=== PATIENT | female | born 1990 | race Caucasian/White ===

== ENCOUNTER 2017-02-21 17:11 | Emergency (ER) | payer SELFPAY ==
[2017-02-21] MEDS ORDERED: Sodium Chloride 0.9% 1,000 ML IV ONE (17:47)
[2017-02-21] MEDS ORDERED: Ondansetron 4 MG/2 ML SDV IVPUSH ONE (17:47)
[2017-02-21] MEDS ORDERED: Sodium Chloride 0.9% 2.5 ML Syringe FLUSH PRN (17:47)
[2017-02-21] MEDS ORDERED: HYDROmorphone 2 MG/ML Syringe IVPUSH ONE (17:47)
[2017-02-21] MEDS ORDERED: Sodium Chloride 0.9% 10 ML Syringe FLUSH PRN (17:47)
[2017-02-21] MEDS ORDERED: Iopamidol 755 Mg/ML 100 ML Bottle IVPUSH STA (17:53)
--- NOTE | 2017-02-21 17:54 | EDM.PDOC ---
<Zahida Peter - Last Filed: 02/21/17 18:31> ED HPI GENERAL MEDICAL PROBLEM - General Chief Complaint: Abdominal Pain Stated Complaint: PT HAS STOMACH PAINS Time Seen by Provider: 02/21/17 17:14 - History of Present Illness INITIAL COMMENTS - FREE TEXT/NARRATIVE: HISTORY AND PHYSICAL: History of present illness: The patient is a 26-year-old female who presents from [facility] where she was seen for right lower abdominal pain that started Sunday evening, 2 days ago and had labs and abdominal x-ray performed. The provider there contacted me with concerns about a WBC count of 13.8 with a left shift, and a tender right lower abdomen concerned about appendicitis. According to the patient here the pain has been constant for 2 days and waxes and wanes in intensity but is mostly sharp and does radiate to the right lower back and sometimes to the right mid abdomen but never to the left side. The patient says that the pain did not start suddenly was more gradual in onset. This pain been associated with nausea and vomiting and she can't keep anything down for the last 2 days. She has not had a bowel movement in the last 3 days. She's not had a fever cough runny nose sore throat dysuria frequency or hematuria. She has no discrete flank pain and no trauma. The patient has not had any recent travel and 8 no new foods recently. She has no GI or [employer] history no history of ovarian cysts and currently says that she is on the Depakote shot and is not . At the outside clinic she did not have her test and her UA was contaminated but the CBC CMP and amylase results were sent to us and have been reviewed by me. Patient has not taken anything for the pain in the last 2 days. Patient says that she felt hot at home but did not have a documented fever. Please note that the patient did not receive any IV fluids or medications at the outside clinic prior to being sent here and they do not have radiologic capabilities other than plain films Review of systems: As per history of present illness and below otherwise all systems reviewed and negative. Past medical history: As per history of present illness and as reviewed below otherwise noncontributory. Surgical history: As per history of present illness and as reviewed below otherwise noncontributory. Social history: No reported history of drug or alcohol abuse. Family history: As per history of present illness and as reviewed below otherwise noncontributory. Physical exam: Gen.: Well-developed overweight female who is nontoxic and benefits of the reviewed by me. Moves easily in the ED without distress HEENT: Atraumatic, normocephalic, pupils reactive, negative for conjunctival pallor or scleral icterus, mucous membranes tacky, throat clear, neck supple, nontender, trachea midline. Lungs: Clear to auscultation, breath sounds equal bilaterally, chest nontender. Heart: S1S2, regular rate and rhythm no overt murmurs are appreciated Abdomen: Soft, nondistended, and hypoactive bowel sounds. On palpation the patient has very minimal right lower abdominal tenderness on deep palpation with distraction and has no rebound or guarding. Negative for masses or hepatosplenomegaly. Negative for costovertebral tenderness. Pelvis: Stable nontender. 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: Deferred. Rectal: Deferred. Extremities: Atraumatic, negative for cords or calf pain. Neurovascular unremarkable. Neuro: Awake, alert, oriented. Cranial nerves II through XII unremarkable. Cerebellum unremarkable. Motor and sensory unremarkable throughout. Exam nonfocal. Diagnostics: Patient had CBC CMP amylase UA performed at the outside clinic along with an abdominal x-ray so we will perform UA serum hCG and CT scan of the abdomen and pelvis here Therapeutics: IV fluids Zofran Dilaudid CBC results from the outside clinic indicated a WBC count of 13.8, hemoglobin of 15 platelet count of 394 with a differential of 63% segs 3% bandemia, CMP and amylase are within normal limits 1900: Case is endorsed to Dr. Allen to follow-up the UA results (if the patient produces a sample and it can be sent for analysis) and the CT scan results. He can disposition the patient pending those test results. Impression: Right lower abdominal pain with vomiting Definitive disposition and diagnosis as appropriate pending reevaluation and review of above.00 right lower quadrant pain Pain Score (Numeric/FACES): 8 - Related Data Allergies Allergy/AdvReac Type Severity Reaction Status Date / Time Penicillins Allergy Cannot Verified 02/21/17 18:04 Remember Sulfa (Sulfonamide Allergy Anaphylactic Verified 02/21/17 18:04 Antibiotics) Shock Home Meds: Home Meds Hyoscyamine Sulfate [Levsin-Sl] 0.125 mg SL TID #20 tab.subl 02/21/17 [Rx] Ondansetron [Zofran ODT] 4 mg SL Q4H PRN #16 tab.dis 02/21/17 [Rx] ED ROS GENERAL - Review of Systems Review Of Systems: ROS reveals no pertinent complaints other than HPI. ED EXAM, GENERAL - Physical Exam Exam: See Below (See dictation) Course - Vital Signs Last Recorded V/S: Last Vital Signs Temp 36.7 C 02/21/17 17:20 Pulse 70 02/21/17 17:20 Resp 18 02/21/17 17:20 BP 147/83 H 02/21/17 17:20 Pulse Ox 98 02/21/17 17:20 - Orders/Labs/Meds Orders: Active Orders 24 hr Category Date Time Status Abdomen Pelvis w Cont [CT] Stat Exams 02/21/17 17:47 Taken Sodium Chloride 0.9% [Saline Flush] Med 02/21/17 17:47 Active 10 ml FLUSH ASDIRECTED PRN Sodium Chloride 0.9% [Saline Flush] Med 02/21/17 17:47 Active 2.5 ml FLUSH ASDIRECTED PRN Saline Lock Insert [OM.PC] Stat Oth 02/21/17 17:46 Ordered Medication Orders Sodium Chloride (Saline Flush) 10 ml FLUSH ASDIRECTED PRN PRN Reason: Keep Vein Open Last Admin: 02/21/17 18:21 Dose: 10 ml Sodium Chloride (Saline Flush) 2.5 ml FLUSH ASDIRECTED PRN PRN Reason: Keep Vein Open Last Admin: 02/21/17 18:20 Dose: 2.5 ml Labs: Laboratory Tests 02/21/17 02/21/17 Range/Units 17:56 18:35 HCG, Qual NEGATIVE (NEG) Urine Color YELLOW Urine Appearance CLEAR Urine pH 6.5 (5.0-8.0) Ur Specific [place] 1.025 (1.001-1.035) Urine Protein TRACE (NEGATIVE) mg/dL Urine Glucose (UA) NEGATIVE (NEGATIVE) mg/dL Urine Ketones NEGATIVE (NEGATIVE) mg/dL Urine Occult Blood NEGATIVE (NEGATIVE) Urine Nitrite NEGATIVE (NEGATIVE) Urine Bilirubin NEGATIVE (NEGATIVE) Urine Urobilinogen 0.2 (<2.0) EU/dL Ur Leukocyte Esterase NEGATIVE (NEGATIVE) Urine RBC 2-4 (0-2/HPF) Urine WBC 0-2 (0-5/HPF) Ur Epithelial Cells FEW (NONE-FEW) Urine Bacteria FEW (NEGATIVE) Urine Mucus LIGHT (NONE-MOD) Meds: Medications Generic Name Dose Route Start Last Admin Trade Name Marlon PRN Reason Stop Dose Admin Sodium Chloride 10 ml 02/21/17 17:47 02/21/17 18:21 Saline Flush FLUSH 10 ml ASDIRECTED PRN Administration Keep Vein Open Sodium Chloride 2.5 ml 02/21/17 17:47 02/21/17 18:20 Saline Flush FLUSH 2.5 ml ASDIRECTED PRN Administration Keep Vein Open Discontinued Medications Generic Name Dose Route Start Last Admin Trade Name Marlon PRN Reason Stop Dose Admin Hydromorphone HCl 0.5 mg 02/21/17 17:47 02/21/17 18:16 Dilaudid IVPUSH 02/21/17 17:48 0.5 mg ONETIME ONE Administration Sodium Chloride 1,000 mls @ 999 mls/hr 02/21/17 17:47 02/21/17 18:17 Normal Saline IV 02/21/17 18:47 999 mls/hr STAT ONE Administration Iopamidol 95 ml 02/21/17 17:53 02/21/17 17:54 Isovue-370 (76%) IVPUSH 02/21/17 17:54 95 ml ONETIME STA Administration Ondansetron HCl 4 mg 02/21/17 17:47 02/21/17 18:16 Zofran IVPUSH 02/21/17 17:48 4 mg ONETIME ONE Administration Departure - Departure Disposition: Home, Self-Care 01 Condition: Good Clinical Impression: Viral gastroenteritis, Diverticulosis Abdominal pain Qualifiers: Abdominal location: right lower quadrant Qualified Code(s): R10.31 - Right lower quadrant pain Vomiting Qualifiers: Vomiting type: unspecified Vomiting Intractability: non-intractable Nausea presence: with nausea Qualified Code(s): R11.2 - Nausea with vomiting, unspecified - Discharge Information Prescriptions: Hyoscyamine Sulfate [Levsin-Sl] 0.125 mg SL TID #20 tab.subl Ondansetron [Zofran ODT] 4 mg SL Q4H PRN #16 tab.dis PRN Reason: Nausea Instructions: Viral Gastroenteritis, Adult, [id number] Referrals: PCP,None [Primary Care Provider] - Forms: ED Department Discharge Additional Instructions: Your symptoms are consistent with viral gastroenteritis. This means a viral infection that causes abdominal pain nausea and vomiting and often diarrhea. Your workup today was unremarkable. Appropriate for you to follow-up with your primary care doctor as an outpatient in the next one to 2 days. Use Zofran one pill under your tongue every 4 hours as needed for nausea and vomiting. Use Levsin under your tongue every 4 hours as needed for crampy abdominal pain. Rest and drink plenty of fluids and return immediately for new severe or worsening symptoms <Alexander Allen - Last Filed: 02/21/17 20:36> ED HPI GENERAL MEDICAL PROBLEM - History of Present Illness INITIAL COMMENTS - FREE TEXT/NARRATIVE: ER attending note Alexander Allen M.D. Care standby me at [address] Peter. Patient stable and CT results pending. CT results show no acute process an incidental finding of colonic diverticulosis. On reevaluation patient is well-appearing with a benign abdominal exam. She has no focal tenderness whatsoever. No mass or megaly. Nondistended abdomen with normal bowel sounds. She is alert communicative and comfortable appearing. She has no active nausea or vomiting. Vital signs are stable. No further workup or treatment indicated. Patient aware of incidental finding of diverticulosis and will discuss with her primary care doctor. She agrees with outpatient follow-up and strict return precautions given Departure - Departure Time of Disposition: 20:24 Condition: Good
[2017-02-21 21:02] VITALS: BP 127/81
--- NOTE | 2017-02-22 09:57 | CT ---
EXAM DATE: 02/21/17 PATIENT'S AGE: 26 Patient: BALDO TEE Facility: [place], [place] Site . Site : [id number] Study: CT Abdomen/Pelvis [id number]/14/2017 7:00:13 PM Ordering Physician: Rome Teague Final Report: INDICATION: RT LOWER ABD PAIN CT ABDOMEN AND PELVIS WITH CONTRAST TECHNIQUE: Multidetector CT imaging was performed through the abdomen and pelvis following intravenous contrast administration. Coronal and sagittal reconstructions were generated. COMPARISON: None. FINDINGS: Included portions of the lower chest show the lung bases to be clear. The liver, spleen, gallbladder, pancreas, adrenals, and kidneys show no significant findings. Bowel loops are of normal caliber and demonstrate no wall thickening. The appendix is normal. There are a few colon diverticula, without findings of diverticulitis. No free fluid or free air is identified. The abdominal aorta appears normal. No abnormally enlarged lymph nodes are seen. The urinary bladder, uterus, and adnexal regions are within normal limits. Visualized bones show no significant findings. IMPRESSION: No acute abnormality identified. No cause for the patient`s symptoms is evident. MARKIE CHENG MD [employer] Dictated by: Yobani Cheng MD @ 02/21/2017 19:16:34 (Electronic Signature) Report Signed by Proxy. [facility]
== END 2017-02-21 20:58 | disposition home or self-care (01) ==
LOC: MW.ED 17:11
DX: A08.4 Viral intestinal infection, unspecified (principal); K57.90 Diverticulosis of intestine, part unspecified, without perforation or abscess without bleeding; Z88.0 Allergy status to penicillin; Z88.2 Allergy status to sulfonamides
CPT/HCPCS: 36415; 74177; 81001; 84703; 96361; 96374; 96375; 99284; J1170; J2405; J7040; Q9967

== ENCOUNTER 2018-03-27 09:05 | Emergency (ER) | payer SELFPAY ==
--- NOTE | 2018-03-27 09:20 | EDM.PDOCBH ---
ED HPI GENERAL MEDICAL PROBLEM - General Chief Complaint: Behavioral/Psych Stated Complaint: PT IS HERE TO BE CHECK Time Seen by Provider: 03/27/18 09:11 Source of Information: Reports: Patient, Police History Limitations: Reports: No Limitations - History of Present Illness INITIAL COMMENTS - FREE TEXT/NARRATIVE: History of present illness: []Patient was brought in by police after being contacted by a coworker that stated she had been texting them and threatening to drive her car into a erwin. Patient has a history of depression and has an appointment with a therapist this month. She has been treated with antidepressants and denies any previous suicide attempts or hospitalizations in the past. Review of systems: As per history of present illness and below otherwise all systems reviewed and negative. Past medical history: As per history of present illness and as reviewed below otherwise noncontributory. Surgical history: As per history of present illness and as reviewed below otherwise noncontributory. Social history: No reported history of drug or alcohol abuse. Family history: As per history of present illness and as reviewed below otherwise noncontributory. Physical exam: General: Well developed, well nourished in NAD HEENT: Atraumatic, normocephalic, pupils reactive, negative for conjunctival pallor or scleral icterus, mucous membranes moist, throat clear, neck supple, nontender, trachea midline. Lungs: Clear to auscultation, breath sounds equal bilaterally, chest nontender. Heart: S1S2, regular, negative for clicks, rubs, or JVD. Abdomen: Soft, nondistended, nontender. Negative for masses or hepatosplenomegaly. Negative for costovertebral tenderness. Pelvis: Stable nontender. 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: Deferred. Rectal: Deferred. Extremities: Atraumatic, negative for cords or calf pain. Neurovascular unremarkable. Neuro: Awake, alert, oriented. Cranial nerves II through XII unremarkable. Cerebellum unremarkable. Motor and sensory unremarkable throughout. Exam nonfocal. Diagnostics: []CBC normal, chemistry normal, aspirin, Tylenol and alcohol are all negative. Tox screen positive for marijuana Therapeutics: []Ativan given 1 mg by mouth Impression: []Depression with suicidal ideation with a plan Plan: []Transfer to [facility] Dr. Kim accepts for psych evaluation Definitive disposition and diagnosis as appropriate pending reevaluation and review of above. - Related Data Allergies Allergy/AdvReac Type Severity Reaction Status Date / Time Penicillins Allergy Airway Verified 03/27/18 09:28 Tightness Sulfa (Sulfonamide Allergy Anaphylactic Verified 03/27/18 09:28 Antibiotics) Shock Home Meds: Home Meds Betamethasone Valerate [Valisone 0.1% Crm] 0.5 gm TOP BID PRN 03/27/18 [History] ClonazePAM [KlonoPIN] 1 mg PO TID 03/27/18 [History] Dicyclomine HCl [Bentyl] 10 mg PO QID PRN 03/27/18 [History] Ibuprofen 600 mg PO Q8H PRN 03/27/18 [History] LORazepam 1 mg PO BID PRN 03/27/18 [History] buPROPion [Wellbutrin] 150 mg PO DAILY 03/27/18 [History] traZODone HCl [Trazodone HCl] 100 mg PO DAILY 03/27/18 [History] Past Medical History Psychiatric History: Reports: Depression - Past Surgical History HEENT Surgical History: Reports: Tonsillectomy Social & Family History - Family History Family Medical History: Noncontributory ED ROS GENERAL - Review of Systems Review Of Systems: See Below (See history of present illness) ED EXAM, BEHAVIORAL HEALTH - Physical Exam Exam: See Below (History of present illness) COURSE, BEHAVIORAL HEALTH COMP - Course Vital Signs: Last Vital Signs Temp 97.1 F 03/27/18 11:51 Pulse 88 03/27/18 11:51 Resp 18 03/27/18 11:51 BP 163/106 H 03/27/18 11:51 Pulse Ox 97 03/27/18 11:51 Orders, Labs, Meds: Active Orders 24 hr Category Date Time Status EKG Documentation Completion [RC] STAT Care 03/27/18 09:19 Active Involuntary Admission/Hold [RC] ASDIRECTED Care 03/27/18 09:27 Active DRUG SCREEN, URINE [URCHEM] Stat Lab 03/27/18 10:31 Ordered Laboratory Tests 03/27/18 03/27/18 03/27/18 Range/Units 09:34 09:34 10:31 WBC 7.13 (4.0-11.0) K/uL RBC 4.72 (4.30-5.90) M/uL Hgb 14.3 (12.0-16.0) g/dL Hct 42.1 (36.0-46.0) % MCV 89.2 (80.0-98.0) fL MCH 30.3 (27.0-32.0) pg MCHC 34.0 (31.0-37.0) g/dL RDW Std Deviation 43.1 (28.0-62.0) fl RDW Coeff of Rose 13 (11.0-15.0) % Plt Count 281 (150-400) K/uL MPV 10.70 (7.40-12.00) fL Neut % (Auto) 52.7 (48.0-80.0) % Lymph % (Auto) 38.1 (16.0-40.0) % [place] % (Auto) 6.6 (0.0-15.0) % Eos % (Auto) 2.0 (0.0-7.0) % Baso % (Auto) 0.6 (0.0-1.5) % Neut # (Auto) 3.8 (1.4-5.7) K/uL Lymph # (Auto) 2.7 H (0.6-2.4) K/uL [place] # (Auto) 0.5 (0.0-0.8) K/uL Eos # (Auto) 0.1 (0.0-0.7) K/uL Baso # (Auto) 0.0 (0.0-0.1) K/uL Nucleated RBC % 0.0 /100WBC Nucleated RBCs # 0 K/uL Sodium 144 (136-145) mmol/L Potassium 3.8 (3.5-5.1) mmol/L Chloride 111 H (98-107) mmol/L Carbon Dioxide 22.2 (21.0-32.0) mmol/L BUN 7 (7.0-18.0) mg/dL Creatinine 0.7 (0.6-1.0) mg/dL Est Cr Clr Drug Dosing 102.40 mL/min Estimated GFR (MDRD) > 60.0 ml/min Glucose 101 (74-106) mg/dL Calcium 8.7 (8.5-10.1) mg/dL Magnesium 2.2 (1.8-2.4) mg/dL Total Bilirubin 0.3 (0.2-1.0) mg/dL AST 18 (15-37) IU/L ALT 29 (14-63) IU/L Alkaline Phosphatase 63 (46-116) U/L Total Protein 7.1 (6.4-8.2) g/dL Albumin 3.7 (3.4-5.0) g/dL Globulin 3.4 (2.0-3.5) g/dL Albumin/Globulin Ratio 1.1 L (1.3-2.8) TSH 3rd Generation 0.83 (0.36-3.74) uIU/mL Salicylates 1.5 (0-20) mg/dL Urine Opiates Screen NEGATIVE (NEGATIVE) Ur Oxycodone Screen NEGATIVE (NEGATIVE) Urine Methadone Screen NEGATIVE (NEGATIVE) Acetaminophen 0.0 ug/mL Ur Barbiturates Screen NEGATIVE (NEGATIVE) Ur Phencyclidine Scrn NEGATIVE (NEGATIVE) Ur Amphetamine Screen NEGATIVE (NEGATIVE) U Methamphetamines Scrn NEGATIVE (NEGATIVE) U Benzodiazepines Scrn NEGATIVE (NEGATIVE) U Cocaine Metab Screen NEGATIVE (NEGATIVE) U Marijuana (THC) Screen POSITIVE (NEGATIVE) Ethyl Alcohol 11 mg/dL Medications Discontinued Medications Generic Name Dose Route Start Last Admin Trade Name Diegoq PRN Reason Stop Dose Admin Lorazepam 1 mg 03/27/18 10:05 03/27/18 10:12 Ativan PO 03/27/18 10:06 1 mg ONETIME ONE Administration Departure - Departure Time of Disposition: 11:59 Disposition: DC/Tfer to Psych Hosp/Unit 65 Condition: Good Clinical Impression: Depression with suicidal ideation - Discharge Information Referrals: PCP,None [Primary Care Provider] - Forms: ED Department Discharge - My Orders Last 24 Hours: My Active Orders 03/27/18 09:19 EKG Documentation Completion [RC] STAT 03/27/18 09:27 Involuntary Admission/Hold [] ASDIRECTED 03/27/18 10:31 DRUG SCREEN, URINE [URCHEM] Stat - Assessment/Plan Last 24 Hours: My Active Orders 03/27/18 09:19 EKG Documentation Completion [RC] STAT 03/27/18 09:27 Involuntary Admission/Hold [] ASDIRECTED 03/27/18 10:31 DRUG SCREEN, URINE [URCHEM] Stat
[2018-03-27] MEDS ORDERED: LORazepam 1 MG Tab PO ONE (10:05)
[2018-03-27 10:41] LABS: CHLORIDE,CL 111 mmol/L (98-107); SODIUM,NA 144 mmol/L (136-145)
[2018-03-27 11:52] VITALS: BP 163/106
== END 2018-03-27 13:14 ==
LOC: MW.ED 09:05
DX: F32.9 Major depressive disorder, single episode, unspecified (principal); R45.851 Suicidal ideations; Z88.0 Allergy status to penicillin; Z88.2 Allergy status to sulfonamides; Z79.899 Other long term (current) drug therapy
CPT/HCPCS: 36415; 80053; 80305; 83735; 84443; 85025; 93005; 99285; A9270; G0480

== ENCOUNTER 2018-05-31 10:01 | Emergency (ER) | payer SELFPAY ==
--- NOTE | 2018-05-31 10:19 | EDM.PDOC ---
ED HPI GENERAL MEDICAL PROBLEM - General Chief Complaint: 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 Problem Stated Complaint: BLADDER INFECTION Time Seen by Provider: 05/31/18 10:04 Source of Information: Reports: Patient History Limitations: Reports: No Limitations - History of Present Illness INITIAL COMMENTS - FREE TEXT/NARRATIVE: HISTORY AND PHYSICAL: History of present illness: Patient is a 28-year-old female who presents to the emergency room with a 2 day history of nausea and dysuria. She states that she has burning with urination which has been worse this morning. She does have some suprapubic tenderness with palpation. She denies any chance of or any concerns of STDs. She denies any vaginal bleeding or discharge. She has been eating and drinking appropriately although has had nausea. An episode of emesis yesterday evening. Denies any fever, chills, chest pain or shortness of breath. Denies any vomiting , diarrhea, constipation or blood in her urine or stool. Review of systems: As per history of present illness and below otherwise all systems reviewed and negative. Past medical history: As per history of present illness and as reviewed below otherwise noncontributory. Surgical history: As per history of present illness and as reviewed below otherwise noncontributory. Social history: No reported history of drug or alcohol abuse. Family history: As per history of present illness and as reviewed below otherwise noncontributory. Physical exam: General: Well-developed and well-nourished 28-year-old female. Alert and oriented. Nontoxic appearing and in no acute distress. HEENT: Atraumatic, normocephalic, pupils equal and reactive bilaterally, negative for conjunctival pallor or scleral icterus, mucous membranes moist, throat clear, neck supple, nontender, trachea midline. No drooling or trismus noted. No meningeal signs Lungs: Clear to auscultation, breath sounds equal bilaterally, chest nontender. Heart: S1S2, regular rate and rhythm without overt murmur Abdomen: Soft, nondistended, nontender. Negative for masses or hepatosplenomegaly. Negative for costovertebral tenderness. Pelvis: Stable nontender. 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: Deferred. Rectal: Deferred. Skin: Intact, warm, dry. No lesions or rashes noted. Extremities: Atraumatic, negative for cords or calf pain. Neurovascular unremarkable. Neuro: Awake, alert, oriented. Cranial nerves II through XII unremarkable. Cerebellum unremarkable. Motor and sensory unremarkable throughout. Exam nonfocal. Notes: Does not have much bacteria or WBCs. I did add a urine culture. Patient is meant that she has a UTI. We rediscussed any concerns of STDs or need for a pelvic exam, she declines. I will give her Macrobid and Pyridium. If signs and symptoms worsen I do want her to follow-up with her primary care provider at [facility]. She voices understanding and denies any further questions or concerns at this time. Diagnostics: UA Therapeutics: Zofran ODT Prescription: Macrobid and Pyridium Impression: Dysuria Plan: 1. Drink plenty of water. 2. Take your medications as directed. 3. Follow-up with your primary care provider in the next 1-2 days. Return to the ED as needed and as discussed. Definitive disposition and diagnosis as appropriate pending reevaluation and review of above. Duration: Day(s): Location: Reports: Pelvis Bladder Pain Score (Numeric/FACES): 8 - Related Data Allergies Allergy/AdvReac Type Severity Reaction Status Date / Time Penicillins Allergy Airway Verified 03/27/18 09:28 Tightness Sulfa (Sulfonamide Allergy Anaphylactic Verified 03/27/18 09:28 Antibiotics) Shock Home Meds: Home Meds Betamethasone Valerate [Valisone 0.1% Crm] 0.5 gm TOP BID PRN 03/27/18 [History] ClonazePAM [KlonoPIN] 1 mg PO TID 03/27/18 [History] Dicyclomine HCl [Bentyl] 10 mg PO QID PRN 03/27/18 [History] Ibuprofen 600 mg PO Q8H PRN 03/27/18 [History] LORazepam 0.5 mg PO BID PRN 03/27/18 [History] buPROPion [Wellbutrin] 150 mg PO DAILY 03/27/18 [History] traZODone HCl [Trazodone HCl] 100 mg PO DAILY 03/27/18 [History] ARIPiprazole [Abilify] 15 mg DAILY 05/31/18 [History] medroxyPROGESTERone [Depo-Provera] 05/31/18 [History] Past Medical History Psychiatric History: Reports: Depression - Infectious Disease History Infectious Disease History: Reports: Chicken Pox - Past Surgical History HEENT Surgical History: Reports: Tonsillectomy Social & Family History - Family History Family Medical History: Noncontributory ED ROS GENERAL - Review of Systems Review Of Systems: ROS reveals no pertinent complaints other than HPI. ED EXAM, RENAL/ - Physical Exam Exam: See Below (See dictation) Course - Vital Signs Last Recorded V/S: Last Vital Signs Temp 97.5 F 05/31/18 10:22 Pulse 88 05/31/18 10:22 Resp 18 05/31/18 10:22 BP 145/78 H 05/31/18 10:22 Pulse Ox 96 05/31/18 10:22 - Orders/Labs/Meds Orders: Active Orders 24 hr Category Date Time Status CULTURE URINE [RM] Stat Lab 05/31/18 10:59 Ordered Labs: Laboratory Tests 05/31/18 Range/Units 10:25 Urine Color YELLOW Urine Appearance SLT CLOUDY Urine pH 6.0 (5.0-8.0) Ur Specific [place] 1.025 (1.001-1.035) Urine Protein TRACE (NEGATIVE) mg/dL Urine Glucose (UA) NEGATIVE (NEGATIVE) mg/dL Urine Ketones TRACE H (NEGATIVE) mg/dL Urine Occult Blood NEGATIVE (NEGATIVE) Urine Nitrite NEGATIVE (NEGATIVE) Urine Bilirubin NEGATIVE (NEGATIVE) Urine Urobilinogen 0.2 (<2.0) EU/dL Ur Leukocyte Esterase NEGATIVE (NEGATIVE) Urine RBC NONE SEEN (0-2/HPF) Urine WBC 1-2 (0-5/HPF) Ur Epithelial Cells RARE (NONE-FEW) Amorphous Sediment NOT SEEN (NEGATIVE) Urine Bacteria NOT SEEN (NEGATIVE) Urine Mucus LIGHT (NONE-MOD) Meds: Medications Discontinued Medications Generic Name Dose Route Start Last Admin Trade Name Freq PRN Reason Stop Dose Admin Ondansetron HCl 4 mg 05/31/18 10:31 Zofran Odt PO 05/31/18 10:32 ONETIME ONE Departure - Departure Time of Disposition: 10:56 Disposition: Home, Self-Care 01 Clinical Impression: Dysuria - Discharge Information Instructions: Dysuria Referrals: PCP,None [Primary Care Provider] - Forms: ED Department Discharge Additional Instructions: The following information is given to patients seen in the emergency department who are being discharged to home. This information is to outline your options for follow-up care. We provide all patients seen in our emergency department with a follow-up referral. The need for follow-up, as well as the timing and circumstances, are variable depending upon the specifics of your emergency department visit. If you don't have a primary care physician on staff, we will provide you with a referral. We always advise you to contact your personal physician following an emergency department visit to inform them of the circumstance of the visit and for follow-up with them and/or the need for any referrals to a consulting specialist. The emergency department will also refer you to a specialist when appropriate. This referral assures that you have the opportunity for follow-up care with a specialist. All of these measure are taken in an effort to provide you with optimal care, which includes your follow-up. Under all circumstances we always encourage you to contact your private physician who remains a resource for coordinating your care. When calling for follow-up care, please make the office aware that this follow-up is from your recent emergency room visit. If for any reason you are refused follow-up, please contact the [facility] Emergency Department at and asked to speak to the emergency department charge nurse. [facility] [address] [place] [id number] [facility] ([facility]) [address] [place] [address] Phone: [phone] 1. Drink plenty of water. 2. Take your medications as directed. 3. Follow-up with your primary care provider in the next 1-2 days. Return to the ED as needed and as discussed. - My Orders Last 24 Hours: My Active Orders 05/31/18 10:59 CULTURE URINE [RM] Stat - Assessment/Plan Last 24 Hours: My Active Orders 05/31/18 10:59 CULTURE URINE [RM] Stat
[2018-05-31 10:26] VITALS: BP 145/78
[2018-05-31] MEDS ORDERED: Ondansetron 4 MG Tab.DIS PO ONE (10:31)
== END 2018-05-31 11:16 | disposition home or self-care (01) ==
LOC: MW.ED 10:01
DX: R30.0 Dysuria (principal); R11.0 Nausea; Z88.0 Allergy status to penicillin; Z88.2 Allergy status to sulfonamides; Z79.899 Other long term (current) drug therapy
CPT/HCPCS: 81001; 87086; 99283; A9270

== ENCOUNTER 2019-02-02 04:47 | Observation (INO) | payer OTHER ==
[2019-02-02] MEDS ORDERED: Sodium Chloride 0.9% 1,000 ML IV ONE (04:52)
[2019-02-02] MEDS ORDERED: Pantoprazole 40 MG Vial IVPUSH ONE (04:52)
[2019-02-02] MEDS ORDERED: Ondansetron 4 MG/2 ML SDV IVPUSH ONE (04:52)
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
[2019-02-02] MEDS ORDERED: Sodium Chloride 0.9% 20 ML ONE (05:22)
[2019-02-02] MEDS ORDERED: Iopamidol 755 Mg/ML 100 ML Bottle IVPUSH ONE (05:23)
[2019-02-02 05:24] LABS: CHLORIDE,CL 107 mmol/L (98-107); SODIUM,NA 144 mmol/L (136-145)
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
[2019-02-02] MEDS: Lactated Ringers 1,000 ML IV SCH ×2 (06:36→14:12)
[2019-02-02] MEDS ORDERED: Nicotine 14 MG/24 Hr Patch TRDERM SCH (09:00)
[2019-02-02] MEDS ORDERED: diphenhydrAMINE 50 MG/ML SDV IVPUSH PRN (09:12)
[2019-02-02] MEDS ORDERED: Ondansetron 4 MG/2 ML SDV IVPUSH PRN (09:12)
[2019-02-02] MEDS ORDERED: Acetaminophen 325 MG Tab PO PRN (09:14)
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
[2019-02-02] MEDS ORDERED: Ketorolac 10 MG Tab PO PRN (13:46)
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
[2019-02-02 18:31] VITALS: BP 140/80
== END 2019-02-02 16:30 | disposition home or self-care (01) ==
LOC: MW.ED 04:47 → MW.MS 05:45
PROVIDERS: ADMIT Surgery; ATTEND Surgery
DX: F10.929 Alcohol use, unspecified with intoxication, unspecified (principal); I10 Essential (primary) hypertension; F32.9 Major depressive disorder, single episode, unspecified; V44.5XXA Car driver injured in collision with heavy transport vehicle or bus in traffic accident, initial encounter; Z88.0 Allergy status to penicillin; Z88.2 Allergy status to sulfonamides; Z79.899 Other long term (current) drug therapy
CPT/HCPCS: 70450; 71045; 71260; 72125; 72170; 74177; 80053; 80305; 81001; 81025; 83690; 84484; 85025; 93005; 96361; 96374; 96375; 99285; A9270; C9113; G0480; J2405; J7040; J7120; Q9967; G0378

== ENCOUNTER 2019-03-13 09:51 | Emergency (ER) | payer SELFPAY ==
[2019-03-13 10:03] VITALS: BP 155/100
[2019-03-13] MEDS ORDERED: Ketorolac 60 MG/2 ML SDV IM ONE (10:23)
[2019-03-13] MEDS ORDERED: Cyclobenzaprine 10 MG Tab PO ONE (10:25)
--- NOTE | 2019-03-13 10:34 | EDM.PDOC ---
<Gerardoirish Edis Garcia - Last Filed: 03/13/19 11:08> ED HPI GENERAL MEDICAL PROBLEM - General Chief Complaint: Neck Problem Stated Complaint: PAIN IN NECK AND LEFT SHOULDER Time Seen by Provider: 03/13/19 10:28 - History of Present Illness INITIAL COMMENTS - FREE TEXT/NARRATIVE: 28 y/o female here for neck pain. States she woke up this morning with acute neck pain on left side. clarissa rated 10/10. Has limited range of motion of the neck. No saddle anesthesia. No bowel incontinence. No difficulty ambulating or with her upper extremities. Tried Ibuprofen 600 mg PO once. No improvement in pain. She was crying when I examined her. neck Pain Score (Numeric/FACES): 10 - Related Data Allergies Allergy/AdvReac Type Severity Reaction Status Date / Time Penicillins Allergy Airway Verified 02/02/19 05:07 Tightness Sulfa (Sulfonamide Allergy Anaphylactic Verified 02/02/19 05:07 Antibiotics) Shock Home Meds: Home Meds Ibuprofen 600 mg PO Q8H PRN 03/27/18 [History] LORazepam 0.5 mg PO BID PRN 03/27/18 [History] ARIPiprazole [Abilify] 15 mg DAILY 05/31/18 [History] medroxyPROGESTERone [Depo-Provera] 150 mg IM ASDIRECTED 05/31/18 [History] Past Medical History Cardiovascular History: Reports: Hypertension Respiratory History: Reports: None Gastrointestinal History: Reports: None 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: Musculoskeletal History: Reports: None Neurological History: Reports: None Psychiatric History: Reports: Depression Endocrine/Metabolic History: Reports: None Hematologic History: Reports: None Immunologic History: Reports: None Oncologic (Cancer) History: Reports: None Dermatologic History: Reports: None - Infectious Disease History Infectious Disease History: Reports: Chicken Pox - Past Surgical History Head Surgeries/Procedures: Reports: None HEENT Surgical History: Reports: Tonsillectomy Social & Family History - Family History Family Medical History: Noncontributory - Tobacco Use Smoking Status *Q: Current Every Day Smoker Years of Tobacco use: 13 Packs/Tins Daily: 0.5 - Caffeine Use Caffeine Use: Reports: Coffee, Energy Drinks, Soda - Recreational Drug Use Recreational Drug Use: No ED ROS GENERAL - Review of Systems Review Of Systems: ROS reveals no pertinent complaints other than HPI. ED EXAM, UPPER BACK/NECK PAIN - Physical Exam Exam: See Below Head Exam: Atraumatic Neck Exam: Other (tender on left cervical paraspinal muscle. Feels warm and tight. Pain with pressure. Limited range of motion. Upper extremity srength intact bilaterally. Sensation intact.) Cardiovascular/Respiratory: Regular Rate, Rhythm Neurologic: No Motor/Sensory Deficits, Alert, Oriented x 3 Course - Vital Signs Text/Narrative:: Administered Ketorolac 60 mg IM once. Flexeril 10 mg PO once. Cervical xray did not show any acute fractures. Last Recorded V/S: Last Vital Signs Temp 36.1 C 03/13/19 10:00 Pulse 95 03/13/19 10:00 Resp 20 03/13/19 10:00 BP 155/100 H 03/13/19 10:00 Pulse Ox 97 03/13/19 10:00 - Orders/Labs/Meds Orders: Active Orders 24 hr Category Date Time Status Cervical Spine 2V or 3V [CR] Stat Exams 03/13/19 10:27 Taken Meds: Medications Discontinued Medications Generic Name Dose Route Start Last Admin Trade Name Freq PRN Reason Stop Dose Admin Cyclobenzaprine HCl 10 mg 03/13/19 10:25 03/13/19 10:32 Flexeril PO 03/13/19 10:26 10 mg ONETIME ONE Administration Ketorolac Tromethamine 60 mg 03/13/19 10:23 03/13/19 10:32 Toradol IM 03/13/19 10:24 60 mg ONETIME ONE Administration Departure - Departure Time of Disposition: 11:07 Disposition: Home, Self-Care 01 Condition: Good Clinical Impression: Muscle spasm - Discharge Information *PRESCRIPTION DRUG MONITORING PROGRAM REVIEWED*: Not Applicable *COPY OF PRESCRIPTION DRUG MONITORING REPORT IN PATIENT JUDY: Not Applicable Referrals: Amando Hines MD [Primary Care Provider] - Forms: ED Department Discharge Additional Instructions: The following information is given to patients seen in the emergency department who are being discharged to home. This information is to outline your options for follow-up care. We provide all patients seen in our emergency department with a follow-up referral. The need for follow-up, as well as the timing and circumstances, are variable depending upon the specifics of your emergency department visit. If you don't have a primary care physician on staff, we will provide you with a referral. We always advise you to contact your personal physician following an emergency department visit to inform them of the circumstance of the visit and for follow-up with them and/or the need for any referrals to a consulting specialist. The emergency department will also refer you to a specialist when appropriate. This referral assures that you have the opportunity for followup care with a specialist. All of these measure are taken in an effort to provide you with optimal care, which includes your followup. Under all circumstances we always encourage you to contact your private physician who remains a resource for coordinating your care. When calling for followup care, please make the office aware that this follow-up is from your recent emergency room visit. If for any reason you are refused follow-up, please contact the [facility] emergency department at and ask to speak to the emergency department charge nurse. [facility] Primary care- Internal Medicine and Family [address] [address] Use ibuprofen 600 mg to 800 mg every 6-8 hours as you have been directed and at the Flexeril for muscle spasm but only take this while at home as it may make you drowsy. Apply heat to area and use massage techniques to try to open up the area and begin to range of motion her neck slowly to keep the muscles as flexible and open as you can. Pain will slowly improve over the next several days to one week. Call and schedule a follow-up appointment in the clinic with one of our providers and return to ER as needed and as discussed <Zahida Peter - Last Filed: 03/13/19 11:15> ED HPI GENERAL MEDICAL PROBLEM - History of Present Illness INITIAL COMMENTS - FREE TEXT/NARRATIVE: This is Dr. Peter dictating an addendum note as I am supervising physician on this case. I agree with history and physical as above personally evaluated the patient. She has reproducible tenderness at the left paraspinals extending into the trapezius but does not involve the thoracic paraspinals or shoulder girdle. She has no midline bony tenderness defects or deformities and has full range of motion of her upper extremities. She denies any trauma and says that when she went to bed last and she felt fine and then woke up with the stiff neck. She says the right side is not painful. We will plan on symptomatic care including [id number] ibuprofen 800 mg every 8 hours or 600 mg every 6 hours as well as Flexeril for home. ED ROS GENERAL - Review of Systems Review Of Systems: ROS reveals no pertinent complaints other than HPI. ED EXAM, UPPER BACK/NECK PAIN - Physical Exam Exam: See Below (See dictation) Departure - Departure Condition: Good
--- NOTE | 2019-03-13 11:13 | CR ---
INDICATION: Pain. TECHNIQUE: Three views cervical spine. FINDINGS: Vertebral bodies are normal in height. Mild reversal of normal lordosis. Dens and lateral masses normally positioned. Prevertebral soft tissues are normal. Postop elements are intact. Disc spaces are maintained. Torticollis with the patient`s head tilted to the right. IMPRESSION: 1. No acute bony abnormality. 2. Reversal of the normal cervical lordosis. 3. Torticollis. Dictated by Nicky Virgen MD @ Mar 13 2019 11:11AM Signed by Dr. Nicky Virgen @ Mar 13 2019 11:13AM
== END 2019-03-13 11:29 | disposition home or self-care (01) ==
LOC: MW.ED 09:51
DX: M62.838 Other muscle spasm (principal); F17.210 Nicotine dependence, cigarettes, uncomplicated; I10 Essential (primary) hypertension; Z79.899 Other long term (current) drug therapy; Z88.0 Allergy status to penicillin; Z88.2 Allergy status to sulfonamides
CPT/HCPCS: 72040; 96372; 99283; A9270; J1885

== ENCOUNTER 2019-06-02 11:27 | Emergency (ER) | payer SELFPAY ==
--- NOTE | 2019-06-02 11:39 | EDM.PDOC ---
ED HPI GENERAL MEDICAL PROBLEM - General Chief Complaint: Skin Complaint Stated Complaint: RIGHT FORHEAD REDNESS Time Seen by Provider: 06/02/19 11:36 Source of Information: Reports: Patient History Limitations: Reports: No Limitations - History of Present Illness INITIAL COMMENTS - FREE TEXT/NARRATIVE: HISTORY AND PHYSICAL: History of present illness: Patient is a 29-year-old female presenting to the emergency room for skin lesion on her forehead. Patient states 4 days ago she developed a reddened area above her right eyebrow with a small center that was slightly elevated above the lesion. She states she tried to pop the center, however only clear watery discharge came out of it. She states yesterday in the afternoon the area more erythematous with increased pain and pressure. There are no aggravating or alleviating factors for her. Patient denies any fever, chills, change in vision , syncope or near syncope. Denies any chest pain, back pain, shortness of breath or cough. Denies any abdominal pain, nausea, vomiting, diarrhea, constipation or dysuria. Has not noted any blood in urine or stool. Patient has been eating and drinking appropriately. Review of systems: As per history of present illness and below otherwise all systems reviewed and negative. Past medical history: As per history of present illness and as reviewed below otherwise noncontributory. Surgical history: As per history of present illness and as reviewed below otherwise noncontributory. Social history: See social history for further information Family history: As per history of present illness and as reviewed below otherwise noncontributory. Physical exam: General: Well-developed and well-nourished 29-year-old female. Alert and orientated. Nontoxic in appearance. Vital signs are stable and have been reviewed by me. HEENT: A golf-ball sized area of erythema along the right mid-eyebrow, does not affect the globe itself, no ocular impingement, normocephalic, pupils equal and reactive bilaterally, negative for conjunctival pallor or scleral icterus, mucous membranes moist, TMs normal bilaterally, throat clear, neck supple, nontender, trachea midline. No temporal pain with palpation, no mastoid tenderness, drooling or trismus noted. No meningeal signs. No hot potato voice noted. Lungs: Clear to auscultation, breath sounds equal bilaterally, chest nontender. Heart: S1S2, regular rate and rhythm without overt murmur Abdomen: Soft, nondistended, nontender. Negative for masses or hepatosplenomegaly. Negative for costovertebral tenderness. Skin: Intact, warm, dry. No lesions or rashes noted. Extremities: Atraumatic, moves all extremities per self without difficulty or deficits, negative for cords or calf pain. Neurovascular unremarkable. Neuro: Awake, alert, oriented. Cranial nerves II through XII unremarkable. Cerebellum unremarkable. Motor and sensory unremarkable throughout. Exam nonfocal. Notes: The area appears localized, nonsystemic. Does appear that the patient may have had a blister type burn and when she popped the fluid that the remaining skin that is erythematous with left. She does not recall any injury but does have a picture on her phone which does look like the blister as described above. Supportive care measures were reviewed and discussed. Voices understanding and is agreeable to plan of care. Denies any further questions or concerns at this time. Diagnostics: None Therapeutics: None Prescription: Bactroban Impression: Localized Skin Infection Plan: 1. Keep the area clean and dry. Wash gently with soap and water twice daily. He may apply the Bactroban ointment 3 times a day 5 days. 2. Tylenol and/or ibuprofen as needed for pain management. 3. Follow-up with your primary care provider as we discussed. Return to the ED as needed and as discussed. Definitive disposition and diagnosis as appropriate pending reevaluation and review of above. Right Face/Facial Pain Score (Numeric/FACES): 10 - Related Data Allergies Allergy/AdvReac Type Severity Reaction Status Date / Time Penicillins Allergy Airway Verified 06/02/19 11:42 Tightness Sulfa (Sulfonamide Allergy Anaphylactic Verified 06/02/19 11:42 Antibiotics) Shock Home Meds: Home Meds Ibuprofen 600 mg PO Q8H PRN 03/27/18 [History] LORazepam 0.5 mg PO BID PRN 03/27/18 [History] ARIPiprazole [Abilify] 15 mg DAILY 05/31/18 [History] medroxyPROGESTERone [Depo-Provera] 150 mg IM ASDIRECTED 05/31/18 [History] Mupirocin Oint [Bactroban Oint] 1 dose TOP TID 5 Days #1 tube 06/02/19 [Rx] Past Medical History Cardiovascular History: Reports: Hypertension Respiratory History: Reports: None Gastrointestinal History: Reports: None 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 History: Reports: None PHYSICAL THERAPY AID History: Reports: Musculoskeletal History: Reports: None Neurological History: Reports: None Psychiatric History: Reports: Depression Endocrine/Metabolic History: Reports: None Hematologic History: Reports: None Immunologic History: Reports: None Oncologic (Cancer) History: Reports: None Dermatologic History: Reports: None - Infectious Disease History Infectious Disease History: Reports: Chicken Pox - Past Surgical History Head Surgeries/Procedures: Reports: None HEENT Surgical History: Reports: Tonsillectomy Social & Family History - Family History Family Medical History: Noncontributory - Caffeine Use Caffeine Use: Reports: Coffee, Energy Drinks, Soda ED ROS GENERAL - Review of Systems Review Of Systems: ROS reveals no pertinent complaints other than HPI. ED EXAM, SKIN/RASH Exam: See Below (See Dictation) Course - Vital Signs Last Recorded V/S: Last Vital Signs Temp 98.2 F 06/02/19 11:37 Pulse 85 06/02/19 11:37 Resp 18 06/02/19 11:37 BP 133/80 06/02/19 11:37 Pulse Ox 96 06/02/19 11:37 Departure - Departure Time of Disposition: 12:02 Disposition: Home, Self-Care 01 Clinical Impression: Localized infection of skin - Discharge Information Prescriptions: Mupirocin Oint [Bactroban Oint] 1 dose TOP TID 5 Days #1 tube Instructions: Contact Dermatitis, [id number] Referrals: PCP,Not In Area [Primary Care Provider] - Forms: ED Department Discharge Additional Instructions: The following information is given to patients seen in the emergency department who are being discharged to home. This information is to outline your options for follow-up care. We provide all patients seen in our emergency department with a follow-up referral. The need for follow-up, as well as the timing and circumstances, are variable depending upon the specifics of your emergency department visit. If you don't have a primary care physician on staff, we will provide you with a referral. We always advise you to contact your personal physician following an emergency department visit to inform them of the circumstance of the visit and for follow-up with them and/or the need for any referrals to a consulting specialist. The emergency department will also refer you to a specialist when appropriate. This referral assures that you have the opportunity for follow-up care with a specialist. All of these measure are taken in an effort to provide you with optimal care, which includes your follow-up. Under all circumstances we always encourage you to contact your private physician who remains a resource for coordinating your care. When calling for follow-up care, please make the office aware that this follow-up is from your recent emergency room visit. If for any reason you are refused follow-up, please contact the [facility] Emergency Department at and asked to speak to the emergency department charge nurse. [facility] [address] [place] [id number] [facility] [address] [place] [id number] 1. Keep the area clean and dry. Wash gently with soap and water twice daily. He may apply the Bactroban ointment 3 times a day 5 days. 2. Tylenol and/or ibuprofen as needed for pain management. 3. Follow-up with your primary care provider as we discussed. Return to the ED as needed and as discussed.
[2019-06-02 11:42] VITALS: BP 133/80; PULSE 85
== END 2019-06-02 12:13 | disposition home or self-care (01) ==
LOC: MW.ED 11:27
DX: L08.9 Local infection of the skin and subcutaneous tissue, unspecified (principal); I10 Essential (primary) hypertension; F32.9 Major depressive disorder, single episode, unspecified; Z88.0 Allergy status to penicillin; Z88.2 Allergy status to sulfonamides; Z79.899 Other long term (current) drug therapy
CPT/HCPCS: 99283

== ENCOUNTER 2021-02-26 11:48 | Emergency (ER) | payer SELFPAY ==
[2021-02-26] MEDS ORDERED: Ketorolac 60 MG/2 ML SDV IM ONE (14:42)
[2021-02-26] MEDS ORDERED: Doxycycline 100 MG Cap PO ONE (15:04)
--- NOTE | 2021-02-26 15:09 | EDM.PDOC ---
ED HPI GENERAL MEDICAL PROBLEM - General Chief Complaint: Skin Complaint Stated Complaint: R EYEBROW AND FACE INFECTED Time Seen by Provider: 02/26/21 14:11 Source of Information: Reports: Patient History Limitations: Reports: No Limitations - History of Present Illness INITIAL COMMENTS - FREE TEXT/NARRATIVE: HISTORY AND PHYSICAL: History of present illness: The patient is a 30-year-old female who presents to the emergency department with complaints of increased swelling of her right eye brow area extending to her nose bridge of her nose after removing a eyebrow ring 2 days ago. The patient states that she had been treating the area with warm compresses but felt swelling was getting worse. Patient has been putting Mupirocin ointment on the area. Patient denies any fever, chills, headache, change in vision, syncope or near syncope. Denies any chest pain, back pain, shortness of breath or cough. Denies any abdominal pain, nausea, vomiting, diarrhea, constipation or dysuria. Has not noted any blood in urine or stool. Patient has been eating and drinking appropriately. Review of systems: As per history of present illness and below otherwise all systems reviewed and negative. Past medical history: As per history of present illness and as reviewed below otherwise noncontributory. Surgical history: As per history of present illness and as reviewed below otherwise noncontributory. Social history: See social history for further information Family history: As per history of present illness and as reviewed below otherwise noncontributory. Physical exam: General: Well developed and well nourished. Alert and orientated x 3. Nontoxic in appearance and in no acute distress. Vital signs are stable and have been reviewed by me. Nursing notes were reviewed. HEENT: Atraumatic, normocephalic, pupils equal and reactive bilaterally, negative for conjunctival pallor or scleral icterus, no mucous membranes moist, TMs normal bilaterally, throat clear, neck supple, nontender, trachea midline. No drooling or trismus noted. No meningeal signs. No hot potato voice noted. Lungs: Clear to auscultation bilaterally. No wheezes, rales, or rhonchi. Chest nontender. Normal work of breathing, no accessory muscles used. Heart: S1S2, regular rate and rhythm without overt murmur, gallops, or rubs. No JVD. No peripheral edema Abdomen: Soft, nondistended, nontender. Normoactive bowel sounds. Negative for masses or costovertebral tenderness. Skin: Right eyebrow, right eye lid extending to bridge of nose with erythema and swelling. Noted missing right eyebrow. Hematologic: No petechiae or purpra. Mucosa appropriate color and normal nail bed color and refill. Extremities: Atraumatic, moves all extremities per self without difficulty or deficits, negative for cords or calf pain. Neurovascular unremarkable. Neuro: Awake, alert, oriented. Cranial nerves II through XII unremarkable. Cerebellum unremarkable. Motor and sensory unremarkable throughout. Exam nonfocal. Psychiatric: Mood and affect are appropriate. Normal thought process. Answering questions appropriately. Notes: *This patient was seen and evaluated during the 2019 SARS-CoV-2 novel [facility] pandemic period. Community viral transmission is ongoing at time of this encounter and the emergency department is operating under pandemic response procedures. As stated above the patient is here for complaints of redness and swelling after having a eyebrow ring removed. The patient did not have pain with ocular movement and was negative for Proptosis. The patient appears to have Preseptal Cellulitis, which I will treat with doxycycline 100 mg twice a day for 14 days. Have treated the patient's pain with Toradol. The patient is agreeable to the pain treatment and discharge plan. I have talked with the patient about today's findings, in addition to providing specific details for plan of care. Reassessment at the time of disposition demonstrates that the patient is in no acute distress. The patient is stable for discharge, counseling was provided and we discussed in great detail signs and symptoms that would prompt them to return to the Emergency Department. Medication, follow up and supportive care measures were reviewed and discussed. Voices understanding and is agreeable to plan of care. Denies any further questions or concerns at this time. Therapeutics: Toradol, doxycycline Prescription:doxycycline 100 mg twice a day for 14 days Impression: Preseptal Cellulitis Plan: 1. You were evaluated today on an emergent basis. Your complaints of right eyebrow swelling and redness after removing an eyebrow ring and applying a hot cloth to the area was found to be infected. I will treat this with doxycycline 100 mg twice a day for 14 days. We have started your dose in the ER and I have written you a prescription. We have treated your pain with Toradol 60 mg. You can take Motrin as needed for pain. 2. You can alternate Tylenol and ibuprofen as needed for pain and fever management. 3. We encourage you to follow up with your primary care provider and/or recommended specialist in the next few days for re-evaluation and further care/management. 4. If your symptoms should worsen, new symptoms develop or any of the signs and symptoms we discussed should arise please return to the emergency room or call 911 (if needed). Definitive disposition and diagnosis as appropriate pending reevaluation and review of above. right eye Pain Score (Numeric/FACES): 10 - Related Data Allergies Allergy/AdvReac Type Severity Reaction Status Date / Time Penicillins Allergy Airway Verified 02/26/21 14:14 Tightness Sulfa (Sulfonamide Allergy Anaphylactic Verified 02/26/21 14:14 Antibiotics) Shock Home Meds: Home Meds LORazepam 1 mg PO BID PRN 03/27/18 [History] ARIPiprazole [Abilify] 15 mg PO DAILY 05/31/18 [History] Mupirocin Oint [Bactroban Oint] 1 dose TOP TID 5 Days #1 tube 06/02/19 [Rx] Past Medical History Cardiovascular History: Reports: Hypertension Respiratory History: Reports: None Gastrointestinal History: Reports: None 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 History: Reports: None 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: Musculoskeletal History: Reports: None Neurological History: Reports: None Psychiatric History: Reports: Depression Endocrine/Metabolic History: Reports: None Hematologic History: Reports: None Immunologic History: Reports: None Oncologic (Cancer) History: Reports: None Dermatologic History: Reports: None - Infectious Disease History Infectious Disease History: Reports: Chicken Pox - Past Surgical History Head Surgeries/Procedures: Reports: None HEENT Surgical History: Reports: Tonsillectomy Social & Family History - Family History Family Medical History: No Pertinent Family History - Tobacco Use Packs/Tins Daily: 0.5 - Caffeine Use Caffeine Use: Reports: None - Recreational Drug Use Recreational Drug Use: Yes Recreational Drug Type: Reports: Marijuana/Hashish Recreational Drug Use Frequency: Socially ED ROS GENERAL - Review of Systems Review Of Systems: Comprehensive ROS is negative, except as noted in HPI. ED EXAM, SKIN/RASH Exam: See Below (See dictation) Course - Vital Signs Last Recorded V/S: Last Vital Signs Temp 97.3 F 02/26/21 14:11 Pulse 89 02/26/21 15:24 Resp 16 02/26/21 15:24 BP 129/83 02/26/21 15:24 Pulse Ox 95 02/26/21 15:24 - Orders/Labs/Meds Meds: Medications Discontinued Medications Generic Name Dose Route Start Last Admin Trade Name Marlon PRN Reason Stop Dose Admin Doxycycline Hyclate 100 mg 02/26/21 15:04 02/26/21 15:23 Doxycycline 100 Mg Cap PO 02/26/21 15:05 100 mg ONETIME ONE Administration Ketorolac Tromethamine 60 mg 02/26/21 14:42 02/26/21 14:48 Ketorolac 60 Mg/2 Ml Sdv IM 02/26/21 14:43 60 mg ONETIME ONE Administration Departure - Departure Time of Disposition: 15:08 Disposition: Home, Self-Care 01 Condition: Good Clinical Impression: Cellulitis Qualifiers: Site of cellulitis: face Qualified Code(s): L03.211 - Cellulitis of face - Discharge Information *PRESCRIPTION DRUG MONITORING PROGRAM REVIEWED*: Not Applicable *COPY OF PRESCRIPTION DRUG MONITORING REPORT IN PATIENT JUDY: Not Applicable Instructions: Preseptal Cellulitis, Adult Referrals: Elizabeth Culver MD [Primary Care Provider] - Forms: ED Department Discharge Additional Instructions: The following information is given to patients seen in the emergency department who are being discharged to home. This information is to outline your options for follow-up care. We provide all patients seen in our emergency department with a follow-up referral. The need for follow-up, as well as the timing and circumstances, are variable depending upon the specifics of your emergency department visit. If you don't have a primary care physician on staff, we will provide you with a referral. We always advise you to contact your personal physician following an emergency department visit to inform them of the circumstance of the visit and for follow-up with them and/or the need for any referrals to a consulting specialist. The emergency department will also refer you to a specialist when appropriate. This referral assures that you have the opportunity for follow-up care with a specialist. All of these measure are taken in an effort to provide you with optimal care, which includes your follow-up. Under all circumstances we always encourage you to contact your private physician who remains a resource for coordinating your care. When calling for follow-up care, please make the office aware that this follow-up is from your recent emergency room visit. If for any reason you are refused follow-up, please contact the [facility] Emergency Department at and asked to speak to the emergency department charge nurse. [facility] - Primary Care [address] [place] [id number] [facility] [address] [place] [id number] Plan: 1. You were evaluated today on an emergent basis. Your complaints of right eyebrow swelling and redness after removing an eyebrow ring and applying a hot cloth to the area was found to be infected. I will treat this with doxycycline 100 mg twice a day for 14 days. We have started your dose in the ER and I have written you a prescription. We have treated your pain with Toradol 60 mg. You can take Motrin as needed for pain. 2. You can alternate Tylenol and ibuprofen as needed for pain and fever management. 3. We encourage you to follow up with your primary care provider and/or recommended specialist in the next few days for re-evaluation and further care/management. 4. If your symptoms should worsen, new symptoms develop or any of the signs and symptoms we discussed should arise please return to the emergency room or call 911 (if needed). Sepsis Event Note (ED) - Evaluation Sepsis Screening Result: No Definite Risk - Focused Exam Vital Signs: Vital Signs Temp Pulse Resp BP Pulse Ox 02/26/21 15:24 89 16 129/83 95 02/26/21 14:11 97.3 F 96 16 147/91 H 94 L
[2021-02-26 15:25] VITALS: BP 129/83; PULSE 89
== END 2021-02-26 15:24 | disposition home or self-care (01) ==
LOC: MW.ED 11:48
DX: L03.211 Cellulitis of face (principal); L03.213 Periorbital cellulitis; I10 Essential (primary) hypertension; Z88.2 Allergy status to sulfonamides; Z88.0 Allergy status to penicillin; Z72.0 Tobacco use
CPT/HCPCS: 96372; 99283; A9270; J1885

== ENCOUNTER 2021-06-20 09:22 | Emergency (ER) | payer SELFPAY ==
[2021-06-20] MEDS ORDERED: Ketorolac 60 MG/2 ML SDV IM ONE (10:41)
[2021-06-20] MEDS ORDERED: Ondansetron 4 MG Tab.DIS PO ONE (10:41)
[2021-06-20] MEDS ORDERED: Acetaminophen 500 MG Tab PO ONE (10:42)
[2021-06-20] MEDS ORDERED: Codeine/guaiFENesin 10-100 MG/5 ML Syrup 5 ML Cup PO ONE ×2 (10:43→11:15)
--- NOTE | 2021-06-20 10:51 | EDM.PDOC ---
ED HPI GENERAL MEDICAL PROBLEM - General Chief Complaint: General Stated Complaint: VOMITTING, COUGHING, BODY PAIN Time Seen by Provider: 06/20/21 09:54 Source of Information: Reports: Patient History Limitations: Reports: No Limitations - History of Present Illness INITIAL COMMENTS - FREE TEXT/NARRATIVE: HISTORY AND PHYSICAL: History of present illness: Patient is a 31 year old female who presents to the ED today with concern of cough, fatigue, generalized body aches and concerned of COVID19 viral infection x 7 days. Patient states that when her symptoms 1st came on, she was tested for Covid at [facility] but states that she has not been able to get a hold of them for the results as [facility] has had a large call volume and nobody answers the phone. Patient states that she has continued to have symptoms with increasing fatigue and cough. Patient states that she currently is on clindamycin for a "vaginal infection" but does not want to elaborate more on to why she is on clindamycin. Patient states that she has been coughing so hard that she is vomiting and feels nauseous secondary to coughing so hard. Patient states her primary symptom is the cough and states that this is most bothersome to her. Patient has a history of hypertension but denies any other health history. Patient denies fever, chills, chest pain, shortness of breath. Denies headache, neck stiff ness, change in vision, syncope, or near syncope. Denies nausea, vomiting, abdominal pain, diarrhea, constipation, or dysuria. Has not noted any blood in urine or stool. Patient has been eating and drinking appropriately. Review of systems: As per history of present illness and below otherwise all systems reviewed and negative. Past medical history: As per history of present illness and as reviewed below otherwise noncontributory. Surgical history: As per history of present illness and as reviewed below otherwise noncontributory. Social history: See social history for further information Family history: As per history of present illness and as reviewed below otherwise noncontributory. Physical exam: General: Patient is alert, oriented, and in no acute distress. Patient sitting comfortably on exam table. Vitals stable and reviewed by me. HEENT: Atraumatic, normocephalic, pupils equal and reactive bilaterally, negative for conjunctival pallor or scleral icterus, mucous membranes moist, throat clear, neck supple, nontender, trachea midline. No drooling or trismus noted. No meningeal signs. No hot potato voice noted. Lungs: Clear to auscultation, breath sounds equal bilaterally, chest nontender. Dry spasmatic cough on exam. Heart: S1S2, regular rate and rhythm without overt murmur Abdomen: Soft, nondistended, nontender. Negative for masses or hepatosplenomegal y. Negative for costovertebral tenderness. Pelvis: Stable nontender. 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: Deferred. Rectal: Deferred. Skin: Intact, warm, dry. No lesions or rashes noted. Extremities: Atraumatic, negative for cords or calf pain. Neurovascular unremarkable. Neuro: Awake, alert, oriented. Cranial nerves II through XII unremarkable. Cerebellum unremarkable. Motor and sensory unremarkable throughout. Exam n onfocal. Notes: Patient is a 31-year-old female who resents emergency room today with concern of possible COVID-19 infection secondary to cough, fatigue, generalized weakness for the past 1 week. Upon arrival to the ED, patient is vitally stable and well appearing on exam. She does have a spasmatic cough on exam, otherwise exam is unremarkable. Patient has had a prior COVID test, unsure of the results as unable to get ahold of the clinic due to large call phone volume. Will obtain COVID/Flu today. Patient is currently on clindamycin for a "vaginal infection" but she does not specify more to this. Patient states that she is not and just had her menstrual cycle 2 weeks ago, declines test today. Patient is requesting mediations to assist with the symptoms of her cough. COVID-19 is positive Upon reevaluation of patient, she has improvement of her symptoms given with therapeutics today. Given patient's BMI of 41.2, and known hypertension, patient does meet criteria for possible monoclonal antibody infusion. I did discuss this thoroughly with patient and she would like to proceed with this. Monoclonal antibody infusion order filled out for patient. Strict return precautions thoroughly discussed with patient. Discussed importance for follow-up with a primary care provider following COVID-19 quarantine restrictions. Voices understanding and is agreeable to plan of care. Denies any further questions or concerns at this time. Diagnostics: COVID/Flu Therapeutics: Tylenol, Toradol, Robitussin AC, Zofran, Nebulized lidocaine Prescription: Zofran, Robitussin Impression: COVID-19 viral infection Plan: 1. Your COVID-19 screening is positive. That means you do have the coronavirus and are considered contagious. Your vital signs and oxygen saturation are well enough that you were able to monitor your symptoms at home. Continue to monitor for trouble breathing, new confusion or inability to arouse, bluish lips or face or any of the other symptoms we discussed -if this occurs please return to the emergency room.Continue to monitor your health at home for worsening symptoms so that you can be taken care of and treated quickly if needed. 2. Please self quarantine until 10 days have passed since your symptoms began AND you are fever free (<100.4 degrees fahrenheit) for 24 hours without the use of fever-reducing medications AND symptoms are improving. You should restrict activities outside of your home, except for getting medical care. Do not go to work, school, or public areas. Avoid using public transportation, ride-sharing, or taxis. Inform any persons that you have been in contact with since you started becoming symptomatic that you have tested positive; they should be made aware and take the appropriate steps as needed. 3. Take the medications as we prescribed as discussed. 4. You may alternate Tylenol and ibuprofen as needed for pain and fever management. 5. The [facility] health department will be calling you and following up with you. The [place] COVID 19 Hotline phone number , They are open Sunday - Sunday 7am - 7pm. Follow up with your primary care provider for re-evaluation and re-testing after quarantine and discuss when you should be seen. 6. For more specific guidelines regarding isolation/quarantine please visit this website. https://www.health.[place].gov/sites/www/files/documents/Files/SACHIN/d[place] virus/Factsheet_for_People_With_COVID-19.pdf Definitive disposition and diagnosis as appropriate pending reevaluation and review of above. back Pain Score (Numeric/FACES): 10 - Related Data Allergies Allergy/AdvReac Type Severity Reaction Status Date / Time Penicillins Allergy Airway Verified 06/20/21 10:30 Tightness Sulfa (Sulfonamide Allergy Anaphylactic Verified 06/20/21 10:30 Antibiotics) Shock Home Meds: Home Meds LORazepam 1 mg PO BID PRN 03/27/18 [History] ARIPiprazole [Abilify] 15 mg PO DAILY 05/31/18 [History] Mupirocin Oint [Bactroban Oint] 1 dose TOP TID 5 Days #1 tube 06/02/19 [Rx] Clindamycin HCl 150 mg PO 06/20/21 [History] Codeine/guaiFENesin [Robitussin AC] 5 ml PO Q6H PRN #100 ml 06/20/21 [Rx] Ondansetron [Zofran ODT] 4 mg PO Q6H PRN #8 tab.dis 06/20/21 [Rx] Past Medical History Cardiovascular History: Reports: Hypertension Respiratory History: Reports: None Gastrointestinal History: Reports: None 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 History: Reports: None SURGICAL TECH History: Reports: Musculoskeletal History: Reports: None Neurological History: Reports: None Psychiatric History: Reports: Depression Endocrine/Metabolic History: Reports: None Hematologic History: Reports: None Immunologic History: Reports: None Oncologic (Cancer) History: Reports: None Dermatologic History: Reports: None - Infectious Disease History Infectious Disease History: Reports: Chicken Pox - Past Surgical History Head Surgeries/Procedures: Reports: None HEENT Surgical History: Reports: Tonsillectomy Social & Family History - Family History Family Medical History: No Pertinent Family History - Caffeine Use Caffeine Use: Reports: None ED ROS GENERAL - Review of Systems Review Of Systems: Comprehensive ROS is negative, except as noted in HPI. ED EXAM, GENERAL - Physical Exam Exam: See Below (see dictation) Course - Vital Signs Last Recorded V/S: Last Vital Signs Temp 97.6 F 06/20/21 10:25 Pulse 73 06/20/21 12:26 Resp 18 06/20/21 12:26 BP 121/71 06/20/21 12:26 Pulse Ox 95 06/20/21 12:26 - Orders/Labs/Meds Labs: Laboratory Tests 06/20/21 Range/Units 10:36 SARS-CoV-2 RNA ([facility]) POSITIVE H (NEGATIVE) Meds: Medications Discontinued Medications Generic Name Dose Route Start Last Admin Trade Name Freq PRN Reason Stop Dose Admin Acetaminophen 1,000 mg 06/20/21 10:42 06/20/21 11:03 Acetaminophen 500 Mg Tab PO 06/20/21 10:43 1,000 mg ONETIME ONE Administration Guaifenesin/Codeine Phosphate 5 ml 10/11/21 11:15 06/20/21 11:18 Codeine/Guaifenesin 10-100 Mg/5 Ml Syrup 5 Ml Cup PO 06/20/21 11:16 5 ml ONETIME ONE Administration Ketorolac Tromethamine 60 mg 06/20/21 10:41 06/20/21 11:04 Ketorolac 60 Mg/2 Ml Sdv IM 06/20/21 10:42 60 mg ONETIME ONE Administration Lidocaine HCl 5 ml 06/20/21 10:42 06/20/21 11:09 Lidocaine 1% 5 Ml Sdv .XX 06/20/21 10:43 5 ml ONETIME ONE Administration Ondansetron HCl 4 mg 06/20/21 10:41 06/20/21 11:04 Ondansetron 4 Mg Tab.Dis PO 06/20/21 10:42 4 mg ONETIME ONE Administration Departure - Departure Time of Disposition: 12:11 Disposition: Home, Self-Care 01 Clinical Impression: COVID-19 virus infection - Discharge Information Prescriptions: Codeine/guaiFENesin [Robitussin AC] 5 ml PO Q6H PRN #100 ml PRN Reason: Cough Ondansetron [Zofran ODT] 4 mg PO Q6H PRN #8 tab.dis PRN Reason: Nausea/Vomiting Instructions: COVID-19 Referrals: PCP,None [Primary Care Provider] - Forms: ED Department Discharge Additional Instructions: The following information is given to patients seen in the emergency department who are being discharged to home. This information is to outline your options for follow-up care. We provide all patients seen in our emergency department with a follow-up referral. The need for follow-up, as well as the timing and circumstances, are variable depending upon the specifics of your emergency department visit. If you don't have a primary care physician on staff, we will provide you with a referral. We always advise you to contact your personal physician following an emergency department visit to inform them of the circumstance of the visit and for follow-up with them and/or the need for any referrals to a consulting specialist. The emergency department will also refer you to a specialist when appropriate. This referral assures that you have the opportunity for follow-up care with a specialist. All of these measure are taken in an effort to provide you with optimal care, which includes your follow-up. Under all circumstances we always encourage you to contact your private physician who remains a resource for coordinating your care. When calling for follow-up care, please make the office aware that this follow-up is from your recent emergency room visit. If for any reason you are refused follow-up, please contact the [facility] Emergency Department at and asked to speak to the emergency department charge nurse. [facility] [address], [place] [address] [facility] [address] [place] [id number] 1. Your COVID-19 screening is positive. That means you do have the coronavirus and are considered contagious. Your vital signs and oxygen saturation are well enough that you were able to monitor your symptoms at home. Continue to monitor for trouble breathing, new confusion or inability to arouse, bluish lips or face or any of the other symptoms we discussed -if this occurs please return to the emergency room.Continue to monitor your health at home for worsening symptoms so that you can be taken care of and treated quickly if needed. 2. Please self quarantine until 10 days have passed since your symptoms began AND you are fever free (<100.4 degrees fahrenheit) for 24 hours without the use of fever-reducing medications AND symptoms are improving. You should restrict activities outside of your home, except for getting medical care. Do not go to work, school, or public areas. Avoid using public transportation, ride-sharing, or taxis. Inform any persons that you have been in contact with since you started becoming symptomatic that you have tested positive; they should be made aware and take the appropriate steps as needed. 3. Take the medications as we prescribed as discussed. 4. You may alternate Tylenol and ibuprofen as needed for pain and fever management. 5. The [facility] department will be calling you and following up with you. The [place] COVID 19 Hotline phone number , They are open Sunday - Mor[place] 7am - 7pm. Follow up with your primary care provider for re-evaluation and re-testing after quarantine and discuss when you should be seen. 6. For more specific guidelines regarding isolation/quarantine please visit this website. https://www.health.[place].gov/sites/www/files/documents/Fi les/SACHIN/coronavirus/Factsheet_for_People_With_COVID-19.pdf Sepsis Event Note (ED) - Evaluation Sepsis Screening Result: No Definite Risk - Focused Exam Vital Signs: Vital Signs Temp Pulse Resp BP Pulse Ox 06/20/21 12:26 73 18 121/71 95 06/20/21 11:19 81 16 124/85 99 06/20/21 10:25 97.6 F 88 18 130/66 96
[2021-06-20 12:27] VITALS: BP 121/71; PULSE 73
== END 2021-06-20 12:26 | disposition home or self-care (01) ==
LOC: MW.ED 09:22
DX: U07.1 COVID-19 (principal); I10 Essential (primary) hypertension; Z88.0 Allergy status to penicillin; Z79.899 Other long term (current) drug therapy
CPT/HCPCS: 87635; 87804; 96372; 99283; A9270; J1885; U0002

== ENCOUNTER 2021-09-06 08:23 | Emergency (ER) | payer MEDICAID, OTHER ==
[2021-09-06] MEDS ORDERED: Sodium Chloride 0.9% 10 ML Syringe FLUSH PRN (08:30)
[2021-09-06] MEDS ORDERED: Sodium Chloride 0.9% 2.5 ML Syringe FLUSH PRN (08:30)
--- NOTE | 2021-09-06 08:53 | EDM.PDOC ---
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 He has rather severe pain with cramping. She is spotting greene size blood clots. She had her last period in May in the early part of the month and she feels comfortable with the idea she is gone to have a baby. She is quite distressed because of the possibility she is losing the baby. She had a therapeutic termination in 2012 but does not know her blood type. She was stressed out before this started happening because she is a single mom to be living with her mother. 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 She says work is better than her social life but she does not have anybody but her mom to help her with the baby and keep her company. Review of systems: As per history of present illness and below otherwise all systems reviewed and negative. Past medical history: As per history of present illness and as reviewed below otherwise noncontributory. Surgical history: As per history of present illness and as reviewed below otherwise noncontributory. Social history: No reported history of drug or alcohol abuse. Family history: As per history of present illness and as reviewed below otherwise nonc ontributory. Physical exam: Constitutional - well developed, well-nourished and in no acute distress HEENT - normocephalic, no evidence of trauma - external nose and mouth normal - no mass in neck and no JVD - mucosae moist EYES - full EOM, PERRL, no icterus - no evidence of inflammation, injection, or drainage Respiratory - no respiratory distress, equal bilateral expansion, lungs clear to auscultation and no abnormal lung sounds Cardiovascular - Regular Rhythm with S1 and S2 appreciated and no murmur, gallop or rub. GI - abdomen soft without distension or organomegaly - normal bowel sounds - no guard or rebound Musculoskeletal no gross deformity of long bones or joints - no tenderness, swelling or edema Neurologic - Alert and oriented times four - CN II-XII grossly intact - motor sensory and coordination symmetrically normal Psychiatric -depressed mood and normal affect with normal thought content Hematologic - No petechiae or purpura - mucosa appropriate color and sclera not pale - normal nail bed color and refill Integument - no rash or evidence of trauma - normal turgor Diagnostics: [] Therapeutics: [] Impression: [] Plan: [] Definitive disposition and diagnosis as appropriate pending reevaluation and review of above. Lower abd Pain Score (Numeric/FACES): 8 - Related Data Allergies Allergy/AdvReac Type Severity Reaction Status Date / Time Penicillins Allergy Airway Verified 06/20/21 10:30 Tightness Sulfa (Sulfonamide Allergy Anaphylactic Verified 06/20/21 10:30 Antibiotics) Shock Home Meds: Home Meds Desvenlafaxine Succinate [Pristiq ER] 100 mg PO DAILY 09/06/21 [History] No122/Iron/Folic Acid [ Multi Tablet] 1 tab PO DAILY 09/06/21 [History] diphenhydrAMINE [Benadryl] 50 mg PO BEDTIME 09/06/21 [History] Past Medical History Cardiovascular History: Reports: Hypertension Respiratory History: Reports: None Gastrointestinal History: Reports: None 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 History: Reports: None CAR RENTAL MANAGER History: Reports: , Other (See Below) Other CAR RENTAL MANAGER History: Elective Musculoskeletal History: Reports: None Neurological History: Reports: None Psychiatric History: Reports: Anxiety, Depression Endocrine/Metabolic History: Reports: None Hematologic History: Reports: None Immunologic History: Reports: None Oncologic (Cancer) History: Reports: None Dermatologic History: Reports: None - Infectious Disease History Infectious Disease History: Reports: Chicken Pox - Past Surgical History Head Surgeries/Procedures: Reports: None HEENT Surgical History: Reports: Tonsillectomy Social & Family History - Family History Family Medical History: No Pertinent Family History Cardiac: Reports: Hypertension Endocrine/Metabolic: Reports: Diabetes, type II - Caffeine Use Caffeine Use: Reports: Soda - Recreational Drug Use Recreational Drug Use: No ED ROS GENERAL - Review of Systems Review Of Systems: Comprehensive ROS is negative, except as noted in HPI. ED EXAM, GENERAL - Physical Exam Exam: See Below Free Text/Narrative:: My physical exam is in the HPI Course - Vital Signs Last Recorded V/S: Last Vital Signs Temp 36.1 C 09/06/21 08:30 Pulse 77 09/06/21 09:14 Resp 18 09/06/21 08:30 BP 150/80 H 09/06/21 09:14 Pulse Ox 97 09/06/21 09:14 - Orders/Labs/Meds Orders: Active Orders 24 hr Category Date Time Status Sodium Chloride 0.9% [Saline Flush] Med 09/06/21 08:30 Active 10 ml FLUSH ASDIRECTED PRN Sodium Chloride 0.9% [Saline Flush] Med 09/06/21 08:30 Active 2.5 ml FLUSH ASDIRECTED PRN Saline Lock Insert [OM.PC] Stat Oth 09/06/21 08:30 Ordered Medication Orders Sodium Chloride (Sodium Chloride 0.9% 10 Ml Syringe) 10 ml FLUSH ASDIRECTED PRN PRN Reason: Keep Vein Open Last Admin: 09/06/21 09:08 Dose: 10 ml Documented by: DONAL Sodium Chloride (Sodium Chloride 0.9% 2.5 Ml Syringe) 2.5 ml FLUSH ASDIRECTED PRN PRN Reason: Keep Vein Open Last Admin: 09/06/21 09:08 Dose: 2.5 ml Documented by: DONAL Labs: Laboratory Tests 09/06/21 09/06/21 09/06/21 Range/Units 09:00 09:00 09:00 WBC 9.91 (4.0-11.0) K/uL RBC 4.36 (4.30-5.90) M/uL Hgb 13.0 (12.0-16.0) g/dL Hct 38.1 (36.0-46.0) % MCV 87.4 (80.0-98.0) fL MCH 29.8 (27.0-32.0) pg MCHC 34.1 (31.0-37.0) g/dL RDW Std Deviation 43.7 (28.0-62.0) fl RDW Coeff of Rose 14 (11.0-15.0) % Plt Count 278 (150-400) K/uL MPV 10.00 (7.40-12.00) fL Neut % (Auto) 66.3 (48.0-80.0) % Lymph % (Auto) 25.8 (16.0-40.0) % [place] % (Auto) 6.7 (0.0-15.0) % Eos % (Auto) 1.0 (0.0-7.0) % Baso % (Auto) 0.2 (0.0-1.5) % Neut # (Auto) 6.6 H (1.4-5.7) K/uL Lymph # (Auto) 2.6 H (0.6-2.4) K/uL [place] # (Auto) 0.7 (0.0-0.8) K/uL Eos # (Auto) 0.1 (0.0-0.7) K/uL Baso # (Auto) 0.0 (0.0-0.1) K/uL Nucleated RBC % 0.0 /100WBC Nucleated RBCs # 0 K/uL HCG, Quant 59249.0 mIU/mL Urine Color Urine Appearance Urine pH (5.0-8.0) Ur Specific [place] (1.001-1.035) Urine Protein (NEGATIVE) mg/dL Urine Glucose (UA) (NEGATIVE) mg/dL Urine Ketones (NEGATIVE) mg/dL Urine Occult Blood (NEGATIVE) Urine Nitrite (NEGATIVE) Urine Bilirubin (NEGATIVE) Urine Urobilinogen (<2.0) EU/dL Ur Leukocyte Esterase (NEGATIVE) Urine RBC (0-2/HPF) Urine WBC (0-5/HPF) Ur Epithelial Cells (NONE-FEW) Calcium Oxalate Crystal (NEGATIVE) Urine Bacteria (NEGATIVE) Urine Mucus (NONE-MOD) Blood Type B POSITIVE 09/06/21 Range/Units 09:08 WBC (4.0-11.0) K/uL RBC (4.30-5.90) M/uL Hgb (12.0-16.0) g/dL Hct (36.0-46.0) % MCV (80.0-98.0) fL MCH (27.0-32.0) pg MCHC (31.0-37.0) g/dL RDW Std Deviation (28.0-62.0) fl RDW Coeff of Rose (11.0-15.0) % Plt Count (150-400) K/uL MPV (7.40-12.00) fL Neut % (Auto) (48.0-80.0) % Lymph % (Auto) (16.0-40.0) % [place] % (Auto) (0.0-15.0) % Eos % (Auto) (0.0-7.0) % Baso % (Auto) (0.0-1.5) % Neut # (Auto) (1.4-5.7) K/uL Lymph # (Auto) (0.6-2.4) K/uL [place] # (Auto) (0.0-0.8) K/uL Eos # (Auto) (0.0-0.7) K/uL Baso # (Auto) (0.0-0.1) K/uL Nucleated RBC % /100WBC Nucleated RBCs # K/uL HCG, Quant mIU/mL Urine Color YELLOW Urine Appearance CLEAR Urine pH 6.0 (5.0-8.0) Ur Specific [place] 1.025 (1.001-1.035) Urine Protein NEGATIVE (NEGATIVE) mg/dL Urine Glucose (UA) NEGATIVE (NEGATIVE) mg/dL Urine Ketones NEGATIVE (NEGATIVE) mg/dL Urine Occult Blood TRACE-INTACT H (NEGATIVE) Urine Nitrite NEGATIVE (NEGATIVE) Urine Bilirubin NEGATIVE (NEGATIVE) Urine Urobilinogen 0.2 (<2.0) EU/dL Ur Leukocyte Esterase NEGATIVE (NEGATIVE) Urine RBC NONE SEEN (0-2/HPF) Urine WBC 0-2 (0-5/HPF) Ur Epithelial Cells FEW (NONE-FEW) Calcium Oxalate Crystal FEW (NEGATIVE) Urine Bacteria FEW (NEGATIVE) Urine Mucus LIGHT (NONE-MOD) Blood Type Meds: Medications Generic Name Dose Route Start Last Admin Trade Name Diegoq PRN Reason Stop Dose Admin Sodium Chloride 10 ml 09/06/21 08:30 09/06/21 09:08 Sodium Chloride 0.9% 10 Ml Syringe FLUSH 10 ml ASDIRECTED PRN Administration Keep Vein Open Sodium Chloride 2.5 ml 09/06/21 08:30 09/06/21 09:08 Sodium Chloride 0.9% 2.5 Ml Syringe FLUSH 2.5 ml ASDIRECTED PRN Administration Keep Vein Open - Re-Assessments/Exams Free Text/Narrative Re-Assessment/Exam: 09/06/21 10:49 Bimanual exam reveals some pinkish discharge. Urine will be sent to the lab because apparently there was significant amount of blood in the patient's not sure was from the bladder or the cervix. The ultrasound revealed a 14-week with good heart rate. Departure - Departure Time of Disposition: 11:39 Disposition: Home, Self-Care 01 Condition: Good Clinical Impression: Threatened - Discharge Information Instructions: Threatened Miscarriage, [id number] Forms: ED Department Discharge Additional Instructions: Return if worse. Take it easy for couple of days and to stop spotting. Follow- up CAR RENTAL MANAGER. [facility] [address] [place] [id number] [facility] [address] [place] [id number] The following information is given to patients seen in the emergency department who are being discharged to home. This information is to outline your options for follow-up care. We provide all patients seen in our emergency department with a follow-up referral. The need for follow-up, as well as the timing and circumstances, are variable depending upon the specifics of your emergency department visit. If you don't have a primary care physician on staff, we will provide you with a referral. We always advise you to contact your personal physician following an emergency department visit to inform them of the circumstance of the visit and for follow-up with them and/or the need for any referrals to a consulting specialist. The emergency department will also refer you to a specialist when appropriate. This referral assures that you have the opportunity for follow-up care with a specialist. All of these measure are taken in an effort to provide you with optimal care, which includes your follow-up. Under all circumstances we always encourage you to contact your private physician who remains a resource for coordinating your care. When calling for follow-up care, please make the office aware that this follow-up is from your recent emergency room visit. If for any reason you are refused follow-up, please contact the [facility] Emergency Department at and asked to speak to the emergency department charge nurse. Sepsis Event Note (ED) - Evaluation Sepsis Screening Result: No Definite Risk - Focused Exam Vital Signs: Vital Signs Temp Pulse Resp BP Pulse Ox 09/06/21 09:14 77 150/80 H 97 09/06/21 08:30 36.1 C 86 18 155/81 H 97 - My Orders Last 24 Hours: My Active Orders 09/06/21 08:30 Sodium Chloride 0.9% [Saline Flush] 10 ml FLUSH ASDIRECTED PRN Sodium Chloride 0.9% [Saline Flush] 2.5 ml FLUSH ASDIRECTED PRN Saline Lock Insert [OM.PC] Stat - Assessment/Plan Last 24 Hours: My Active Orders 09/06/21 08:30 Sodium Chloride 0.9% [Saline Flush] 10 ml FLUSH ASDIRECTED PRN Sodium Chloride 0.9% [Saline Flush] 2.5 ml FLUSH ASDIRECTED PRN Saline Lock Insert [OM.PC] Stat
--- NOTE | 2021-09-06 11:30 | US ---
Indication: Spotting Technique: Sonography of the gravid uterus was performed. Doppler was performed to assess for heart rate and to assess the ovaries. The examination was performed transabdominally. Comparison: There are no prior studies for comparison Findings: There is a single living intrauterine . Fetus is breech during most of the procedure. heart rate is normal at 150 beats per minute. The placenta is posterior without evidence of retroplacental or mt-placental hemorrhage. The right ovary is not seen with certainty. The left ovary appears normal. There is no evidence of torsion. Myometrium appears normal. BIOMETRY: CRL is 8.16 centimeters corresponding to 14 weeks and 1 day BPD is 2.64 centimeters corresponding to 14 weeks and 4 days HC is 10.14 centimeters corresponding to 14 weeks and 5 days AC is 8.40 centimeters corresponding to 14 weeks and 5 days F now is 1.39 centimeters corresponding to 14 weeks and 1 day Average ultrasound age is 14 weeks and 3 days with ultrasound estimated date of delivery of 03/04/2022 The LMP of 06/08/2021 yields 12 weeks and 6 days which is discordant Impression: 1. There is a single live intrauterine . No mt-placental hemorrhage or retroplacental hemorrhage. No specific visibly etiology for bleeding 2. Average ultrasound age by current biometry is 14 weeks and 3 days with an estimated date of delivery of 03/04/2022. This is discordant with the age predicted by the LMP which is 12 weeks and 6 days. 3. Normal heart rate. Subjectively normal fluid volumes Dictated by Edvin Estrada MD @ 09/06/2021 11:29:27 AM (Electronically Signed)
[2021-09-06 12:05] VITALS: BP 123/73; PULSE 98
== END 2021-09-06 11:53 | disposition home or self-care (01) ==
LOC: MW.ED 08:23
DX: O20.0 Threatened abortion (principal); O16.2 Unspecified maternal hypertension, second trimester; Z88.0 Allergy status to penicillin; Z88.2 Allergy status to sulfonamides; Z79.899 Other long term (current) drug therapy; Z3A.14 14 weeks gestation of pregnancy
CPT/HCPCS: 76815; 76815-26; 81001; 84702; 85025; 86900; 86901; 99284-25

== ENCOUNTER 2022-02-14 03:16 | Observation (INO) | payer MEDICAID, OTHER ==
[2022-02-14] MEDS ORDERED: hydrOXYzine Pamoate 25 MG Cap PO ONE (23:48)
[2022-02-15] MEDS ORDERED: Acetaminophen 500 MG Tab PO ONE (08:27)
[2022-02-15] MEDS: Acetaminophen 500 MG Tab PO PRN ×2 (15:23→22:00)
[2022-02-15] MEDS ORDERED: hydrOXYzine Pamoate 25 MG Cap PO ONE (19:36)
[2022-02-16] MEDS: Acetaminophen 500 MG Tab PO PRN ×2 (04:01→15:39)
[2022-02-16] MEDS ORDERED: ePHEDrine 50 MG/ML SDV IVPUSH PRN ×2 (11:35)
[2022-02-16] MEDS ORDERED: Ropivacaine in NACL,ISO-OSM/PF 800 MG in Premix Bag 1 BAG EPIDUR SCH ×2 (11:45)
[2022-02-16] MEDS ORDERED: PARoxetine 20 MG Tab PO SCH (14:45)
[2022-02-16] MEDS ORDERED: Nicotine 21 MG/24 Hr Patch TRDERM SCH (14:45)
[2022-02-16] MEDS ORDERED: OLANZapine 5 MG Tab PO PRN (19:31)
[2022-02-17] MEDS ORDERED: Prenatal Multivitamin with Calcium/Folic Acid/Iron Tab PO SCH (09:00)
[2022-02-17] MEDS ORDERED: Cetirizine 10 MG Tab PO SCH (09:00)
== END 2022-02-16 21:14 ==
LOC: MW.OBCHECK 03:16 → MW.OB 03:16 → MW.OBCHECK 20:46 → MW.OB 02-16 18:25
PROVIDERS: ADMIT Obstetrics & Gynecology; ATTEND Obstetrics & Gynecology
DX: O99.343 Other mental disorders complicating pregnancy, third trimester (principal); O46.93 Antepartum hemorrhage, unspecified, third trimester; O99.891 Other specified diseases and conditions complicating pregnancy; F20.9 Schizophrenia, unspecified; F17.210 Nicotine dependence, cigarettes, uncomplicated; I10 Essential (primary) hypertension; F41.9 Anxiety disorder, unspecified; F32.A Depression, unspecified; Z20.822 Contact with and (suspected) exposure to COVID-19; Z3A.37 37 weeks gestation of pregnancy; Z98.890 Other specified postprocedural states; Z79.899 Other long term (current) drug therapy; Z88.2 Allergy status to sulfonamides; Z88.0 Allergy status to penicillin
CPT/HCPCS: 59025; 76815; 80305; 87635; 93005; A9270; G0378; U0002

== ENCOUNTER 2022-11-29 14:40 | Emergency (ER) | payer MEDICAID ==
[2022-11-29] MEDS ORDERED: LORazepam 1 MG Tab PO ONE (15:08)
[2022-11-29] MEDS ORDERED: Haloperidol Lactate 5 MG/ML SDV IM ONE (15:55)
[2022-11-29 16:15] LABS: ACETAMINOPHEN <2.0 ug/mL; BLOOD UREA NITROGEN,BUN 7 mg/dL (7.0-18.0); CARBON DIOXIDE,CO2 28.5 mmol/L (21.0-32.0); CHLORIDE,CL 104 mmol/L (98-107); ESTIMATED GFR 99 mL/min (>60); GLUCOSE RANDOM 93 mg/dL (74-106); POTASSIUM,K 3.4 mmol/L (3.5-5.1); SODIUM,NA 140 mmol/L (136-145)
[2022-11-29 18:51] VITALS: BP 135/78; PULSE 89
== END 2022-11-29 22:18 | disposition left against medical advice (07) ==
LOC: MW.ED 14:40
DX: F29 Unspecified psychosis not due to a substance or known physiological condition (principal); I10 Essential (primary) hypertension; Z88.0 Allergy status to penicillin; Z88.2 Allergy status to sulfonamides; Z79.899 Other long term (current) drug therapy
CPT/HCPCS: 36415; 80053; 80143; 80179; 80305; 80307; 81001; 81025; 83735; 85025; 93005; 96372; 99285; A9270; J1630

== ENCOUNTER 2023-06-12 19:44 | Emergency (ER) | payer MEDICAID ==
[2023-06-12] MEDS ORDERED: Midazolam 5 MG/ML SDV IM ONE ×2 (19:52→19:59)
[2023-06-12] MEDS ORDERED: Midazolam 5 MG/ML SDV ONE (19:54)
[2023-06-12] MEDS ORDERED: LORazepam 2 MG/ML SDV ONE (20:14)
[2023-06-12] MEDS ORDERED: LORazepam 2 MG/ML SDV IVPUSH ONE ×2 (20:15→22:58)
[2023-06-12 20:21] LABS: BASOPHILS ABSOLUTE AUTO 0.1 K/uL (0.0-0.1); BASOPHILS PERCENT AUTO 0.4 % (0.0-1.5); EOSINOPHILS ABSOLUTE AUTO 0.1 K/uL (0.0-0.7); EOSINOPHILS PERCENT AUTO 0.7 % (0.0-7.0); HEMATOCRIT 45.9 % (36.0-46.0); HEMOGLOBIN 15.4 g/dL (12.0-16.0); LYMPHOCYTES ABSOLUTE AUTO 6.9 K/uL (0.6-2.4); LYMPHOCYTES PERCENT AUTO 40.6 % (16.0-40.0); MEAN CORPUSCULAR HEMOGLOBIN 29.5 pg (27.0-32.0); MEAN CORPUSCULAR HGB CONC 33.6 g/dL (31.0-37.0); MEAN CORPUSCULAR VOLUME 87.9 fL (80.0-98.0); MONOCYTES ABSOLUTE AUTO 1.1 K/uL (0.0-0.8); MONOCYTES PERCENT AUTO 6.6 % (0.0-15.0); NEUTROPHILS ABSOLUTE AUTO 8.8 K/uL (1.4-5.7); NEUTROPHILS PERCENT AUTO 51.7 % (48.0-80.0); PLATELET COUNT,PLT 478 K/uL (150-400); RED BLOOD CELL COUNT 5.22 M/uL (4.30-5.90); WHITE BLOOD CELL COUNT,WBC 16.93 K/uL (4.0-11.0)
[2023-06-12 20:53] LABS: A/G RATIO 0.9 (0.9-1.6); ACETAMINOPHEN <2.0 ug/mL; ALANINE AMINOTRANSFERASE,ALT 26 IU/L (14-63); ALBUMIN 3.7 g/dL (3.4-5.0); ALKALINE PHOSPHATASE 86 U/L (46-116); ASPARTATE AMNIOTRANSFERASE,AST 17 IU/L (15-37); BILIRUBIN TOTAL 0.2 mg/dL (0.2-1.0); BLOOD UREA NITROGEN,BUN 7 mg/dL (7.0-18.0); CARBON DIOXIDE,CO2 19.3 mmol/L (21.0-32.0); CHLORIDE,CL 103 mmol/L (98-107); CREATININE 1.1 mg/dL (0.6-1.0); ESTIMATED GFR 67 mL/min (>60); ETHANOL BLOOD MEDICAL 161 mg/dL; GLUCOSE RANDOM 110 mg/dL (74-106); POTASSIUM,K 3.1 mmol/L (3.5-5.1); PROTEIN TOTAL,TP 7.8 g/dL (6.4-8.2); SALICYLATE 2.7 mg/dL (0.0-20.0); SODIUM,NA 143 mmol/L (136-145); TSH ULTRASENSITIVE 1.33 uIU/mL (0.36-3.74)
[2023-06-12 21:25] LABS: APPEARANCE,URINE CLEAR; BILIRUBIN,URINE NEGATIVE (NEGATIVE); COLOR,URINE YELLOW; GLUCOSE,URINE NEGATIVE (NEGATIVE); KETONES,URINE NEGATIVE (NEGATIVE); LEUKOCYTE ESTERASE,URINE NEGATIVE (NEGATIVE); NITRITE,URINE NEGATIVE (NEGATIVE); OCCULT BLOOD,URINE TRACE-INTACT (NEGATIVE); PROTEIN,URINE 30 mg/dL (NEGATIVE); UROBILINOGEN,URINE 0.2 EU/dL (<2.0)
[2023-06-12 21:34] LABS: BACTERIA,URINE FEW (NEGATIVE); EPITHELIAL CELLS,URINE FEW (NONE-FEW); RBC,URINE 0-2 (0-2/HPF); WBC,URINE 0-2 (0-5/HPF)
[2023-06-12 21:35] LABS: AMPHETAMINES SCREEN, URINE NEGATIVE (CUTOFF=500); BARBITURATE SCREEN,URINE NEGATIVE (CUTOFF=200); BENZODIAZEPINES SCREEN,URINE PRESUMPTIVE POSITIVE (CUTOFF=150); BUPRENORPHINE SCREEN,URINE NEGATIVE (CUTOFF=10); METHADONE SCREEN, URINE NEGATIVE (CUTOFF=200); METHAMPHETAMINES SCREEN, URINE NEGATIVE (CUTOFF=500); MUCUS,URINE LIGHT (NONE-MOD); OXYCODONE SCREEN,URINE NEGATIVE (CUT0FF=100); PCP SCREEN,URINE NEGATIVE (CUTOFF=25); PROPOXYPHENE SCREEN,URINE NEGATIVE (CUTOFF=300); THC SCREEN,URINE 20 NG/ML NEGATIVE (CUTOFF=50)
[2023-06-12 23:05] VITALS: BP 123/81; PULSE 103
== END 2023-06-12 23:00 ==
LOC: MW.ED 19:44
DX: F29 Unspecified psychosis not due to a substance or known physiological condition (principal); I10 Essential (primary) hypertension; Z79.899 Other long term (current) drug therapy; Z88.0 Allergy status to penicillin; Z88.2 Allergy status to sulfonamides; Z20.822 Contact with and (suspected) exposure to COVID-19
CPT/HCPCS: 36415; 80053; 80143; 80179; 80305; 80307; 81001; 81025; 82550; 83735; 84443; 85025; 87635; 93005; 96372; 96374; 96376; 99291; 99292; J2060; J2250; 93010; U0002

== ENCOUNTER 2023-07-20 20:33 | Emergency (ER) | payer MEDICAID | END 2023-07-20 20:52 | disposition left against medical advice (07) | LOC: MW.ED 20:33 | DX: Z53.21 Procedure and treatment not carried out due to patient leaving prior to being seen by health care provider (principal) ==

== ENCOUNTER 2023-09-19 10:55 | Emergency (ER) | payer MEDICAID ==
[2023-09-19 11:05] VITALS: BP 130/91; PULSE 89
[2023-09-19] MEDS ORDERED: Acetaminophen 500 MG Tab PO ONE (12:28)
== END 2023-09-19 12:40 | disposition home or self-care (01) ==
LOC: MW.ED 10:55
DX: S09.90XA Unspecified injury of head, initial encounter (principal); I10 Essential (primary) hypertension; F17.210 Nicotine dependence, cigarettes, uncomplicated; Z88.2 Allergy status to sulfonamides; Z88.0 Allergy status to penicillin; Z79.899 Other long term (current) drug therapy; Y04.2XXA Assault by strike against or bumped into by another person, initial encounter
CPT/HCPCS: 70450; 70486; 99284; A9270